=== PATIENT | female | born 1955 | race African-American/Black ===

== ENCOUNTER → 2017-02-19 | Outpatient (CLI) | payer BC ==
[~2017-02-19] VITALS: Ht 160 cm; Wt 71.4 kg
[~2017-02-19] MED LIST: AVAPRO; CALCIUM 500 MG1 EACH PO; CAPTOPRIL; CITALOPRAM; DILANTIN100 MG PO; FOSAMAX70 MG PO; GLIPIZIDE; LASIX; LIPITOR PO; LIPITOR20 MG PO; NORCO 5/3251 TABLET PO; PROCARDIA; TRANDATE; VITAMIN D2000 UNIT PO; VITAMIN D400 UNIT PO; [UNRECOGNIZED DRUG - OTHER]
[2017-02-19 10:33] VITALS: BP 139/67
== END | disposition home or self-care (01) ==
LOC: IVINF 10:16
DX: M81.0 Age-related osteoporosis without current pathological fracture (principal)
CPT/HCPCS: 96365; J3489

== ENCOUNTER → 2018-02-28 | Outpatient (CLI) | payer BC ==
[~2018-02-28] VITALS: Ht 160 cm; Wt 69.0 kg
[2018-02-28 13:16] VITALS: BP 133/70
== END | disposition home or self-care (01) ==
LOC: IVINF 02-19 15:00
DX: M81.0 Age-related osteoporosis without current pathological fracture (principal)
CPT/HCPCS: 96365; J3489